=== PATIENT | female | born 1990 | race Caucasian/White ===

== ENCOUNTER 2021-07-06 13:04 | Outpatient (CLI) | payer OTHER ==
[~2021-07-06 13:04] MED LIST: COLACE 100MG C100 MG PO
[2021-07-07] MEDS ORDERED: COLACE100 MG PO (07:08)
[2021-07-07] MEDS ORDERED: IBUPROFEN800 MG PO (07:08)
[2021-07-07] MEDS ORDERED: HEMOCYTE324 MG PO (07:08)
[2021-07-07] MEDS ORDERED: ZOLOFT50 MG PO (07:10)
[2021-07-07] MEDS ORDERED: L-METHYLFOLATE7.5 MG PO (07:10)
[2021-07-07] MEDS ORDERED: IRON325 M1 PO (07:11)
[2021-07-07] MEDS ORDERED: PNV 29-1 TABLE1 EACH PO (07:11)
[2021-07-07] MEDS ORDERED: UNISOM25 MG PO (07:11)
== END 2021-07-06 15:07 | disposition home or self-care (01) ==
LOC: GENOP 13:04
DX: O47.1 False labor at or after 37 completed weeks of gestation (principal); O46.93 Antepartum hemorrhage, unspecified, third trimester; Z3A.38 38 weeks gestation of pregnancy
CPT/HCPCS: 81001; G0463

== ENCOUNTER 2021-07-06 22:11 | Inpatient (IN) | payer OTHER ==
[2021-07-06 22:54] LABS: HEMOGLOBIN 11.8 gm/dl (12.3-15.3); RED BLOOD COUNT 3.93 M/UL (4.00-5.10); WHITE BLOOD COUNT 10.4 K/UL (4.5-11.0)
[2021-07-07] MEDS ORDERED: COLACE100 MG PO (07:08)
[2021-07-07] MEDS ORDERED: HEMOCYTE324 MG PO (07:08)
[2021-07-07] MEDS ORDERED: IBUPROFEN800 MG PO (07:08)
[2021-07-07] MEDS ORDERED: L-METHYLFOLATE7.5 MG PO (07:10)
[2021-07-07] MEDS ORDERED: ZOLOFT50 MG PO (07:10)
[2021-07-07] MEDS ORDERED: PNV 29-1 TABLE1 EACH PO (07:11)
[2021-07-07] MEDS ORDERED: UNISOM25 MG PO (07:11)
[2021-07-07] MEDS ORDERED: IRON325 M1 PO (07:11)
[2021-07-08 07:10] LABS: HEMOGLOBIN 10.5 gm/dl (12.3-15.3)
== END 2021-07-09 16:04 | disposition home or self-care (01) | DRG 807 ==
LOC: GENOP 22:11 → CDU 22:38 → OB 22:38
PROVIDERS: ADMIT Obstetrics & Gynecology
PROC: 4A1HXCZ Monitoring of Products of Conception, Cardiac Rate, External Approach (ICD-10-PCS; 2021-07-06)
PROC: 10E0XZZ Delivery of Products of Conception, External Approach (ICD-10-PCS; principal; 2021-07-07)
PROC: 0HQ9XZZ Repair Perineum Skin, External Approach (ICD-10-PCS; 2021-07-07)
PROC: 3E0234Z Introduction of Serum, Toxoid and Vaccine into Muscle, Percutaneous Approach (ICD-10-PCS; 2021-07-07)
DX: O42.92 Full-term premature rupture of membranes, unspecified as to length of time between rupture and onset of labor (principal); Z37.0 Single live birth; Z20.822 Contact with and (suspected) exposure to COVID-19; Z3A.39 39 weeks gestation of pregnancy; O70.0 First degree perineal laceration during delivery; O99.344 Other mental disorders complicating childbirth; F32.A Depression, unspecified; Z82.49 Family history of ischemic heart disease and other diseases of the circulatory system; Z81.8 Family history of other mental and behavioral disorders; Z91.040 Latex allergy status; Z23 Encounter for immunization
CPT/HCPCS: 36415; 36600; 51702; 82800; 85014; 85018; 85025; 90471; 90686; 90715; J1885; J2405; J2590; J2795; U0002